=== PATIENT | female | born 1960 | race Caucasian/White ===

== ENCOUNTER 2017-07-28 07:30 | Inpatient (IN) | payer OTHER ==
[~2017-07-28] VITALS: Ht 162.6 cm; Wt 92.5 kg
--- NOTE | ~2017-07-28 | CR144 ---
[facility] A Service of [place] [facility] RADIOLOGY TEXT RESULTS PATIENT: KING ANDREWS LOCATION: [place] [address]- : 58 UNIT #: [id number] AGE: [address]: Felipe Self MD SEX: F ORDER DR: [id number] [facility] [address] [facility]. [place], [place] [address] [id number] MR#: [id number] Acc #: [id number] NAME: KING ANDREWS. : 1960 SEX: F STUDY DATE/TIME: 07/29/2017 07:27 UNIT: [facility] ROOM: [facility] STUDY DESCRIPTION: CR Hip 1 View Lt Attending Physician: Felipe Self M.D. Ordering Physician: Scott Ramirez M.D. MEDICAL IMAGING REPORT This report is preliminary unless electronic signature is present EXAM Left hip, 07/29/2017, 0727 hours. HISTORY Hip pain status post closed reduction left hip dislocation today. COMPARISON 08/04/2011 FINDINGS AP view demonstrates a left hip replacement with a screwed acetabular component and a noncemented femoral component in anatomic alignment. No fracture or dislocation is seen. IMPRESSION Single view left hip demonstrates postop change of left hip replacement with no fracture or dislocation.. Dictated by... Celia Villaseñor M.D. THIS IS AN ELECTRONICALLY VERIFIED REPORT Celia Villaseñor M.D. at 07/29/2017 5:52 PM PENNIE/corey TD: 07/29/2017 14:47 JOB #: [id number] MEDICAL IMAGING REPORT Page 1 of 1 COPY
--- NOTE | ~2017-07-28 | OR ---
Unit #: [id number] #: [id number] Patient: KING AMOR [id number] [place] [id number] [facility]. [place], [place] [address] [id number] I MR#: [id number] NAME: KING AMOR. ROOM: 471 Date of Procedure: 07/29/2017 Admission Date: 07/28/2017 Surgeon: Scott Ramirez M.D. : 1960 Attending Physician: Felipe Self M.D. OPERATIVE REPORT PREOPERATIVE DIAGNOSIS Dislocated left total hip arthroplasty. POSTOPERATIVE DIAGNOSIS Dislocated left total hip arthroplasty PROCEDURE PERFORMED Closed reduction, left hip and removal of staple. ASSISTANTS None. ANESTHESIA General anesthesia. COMPLICATIONS None. INDICATION FOR PROCEDURE Ms. Amor is a 56-year-old female, patient of my partner, Dr. Zuñiga, who is one month status post left total hip revision for instability, reports who was at home, sat on the couch and dislocated her left hip. She was seen at [facility] where x-rays were obtained. She was transferred to [facility] for definitive management. Original revision surgery was performed at [facility]. Discussion of possibly repeat dislocations were occurred. The plan was to do a closed reduction at this time. Risks and benefits were discussed in detail including fracture, neurovascular injury, DVT, PE, and . She understood and wished to proceed. DESCRIPTION OF PROCEDURE After the patient identified in preop holding area, the operative site was marked in front of the patient. She was brought to the operating room on her hospital bed. General anesthesia was induced. The left hip was cleaned alcohol and single staple was removed. Then, a closed reduction maneuver was performed with the hip flexed 90 degrees and knee flexed 90 degrees and the hip maximally internally rotated and anteriorly directed force was provided and the hip was externally rotated, and leg lengths were found to be equal. A portable digital x-ray was obtained intraoperatively showed the hip to be concentrically reduced without fracture. A knee immobilizer was placed. She was awakened from anesthesia and returned to recovery room in stable condition. No Unit #: [id number] #: [id number] Patient: KING AMOR intraoperative complications. Dictated by... Scott Ramierz M.D. DPR/modl TD: 07/29/2017 08:02 JOB #: [id number] OPERATIVE REPORT Page 1 of 1 X Scott Ramirez MD PROCEDURE OPERATIVE NOTE
--- NOTE | ~2017-07-28 | DS ---
Unit #: [id number] #: [id number] Patient: KING AMOR [id number] [address] [place], [place] [address] [id number] I MR#: [id number] NAME: KING AMOR ROOM: 47 Age: 56 Sex: F Admission Date: 07/28/2017 : 1960 Discharge Date: 07/29/2017 Attending Physician: Felipe Self M.D. DISCHARGE SUMMARY DISCHARGE DIAGNOSIS Dislocated left total hip arthroplasty. INDICATIONS FOR ADMISSION Mr. Amor is a 56-year-old female, patient of Dr. Zuñiga, who is 1 month status post left total hip revision at [facility]. She was sitting on the couch and her hip dislocated. She was transferred from [facility] to [facility] for definitive management. She underwent a closed reduction on 07/29/2017 which she tolerated well without complication. Physical therapy will be consulted to review posterior hip dislocation precautions. She will be discharged home later today. PLAN She will follow up with Dr. Zuñiga in the next week or 2. She is to continue with the knee immobilizer when out of bed. Any questions or concerns please call the office at [phone]. Dictated by... Scott Ramirez M.D. BUZZ/maddy TD: 07/29/2017 08:05 JOB #: [id number] DISCHARGE SUMMARY Page 1 of 1 X Scott Ramirez MD X DISCHARGE SUMMARY
--- NOTE | ~2017-07-28 | EKG ---
PATIENT: KING ANDREWS UNIT #: [id number] Ventricular Rate: 52 BPM Atrial Rate: 52 BPM P-R Interval: 162 ms QRS Duration: 98 ms Q-T Interval: 472 ms QTC Calculation(Bezet): 438 ms P [place]: 26 degrees Calculated R [place]: 2 degrees Calculated T [place]: 9 degrees Diagnosis Line: Sinus bradycardia Diagnosis Line: Nonspecific ST abnormality Diagnosis Line: Abnormal ECG Diagnosis Line: No previous ECGs available Diagnosis Line: Confirmed by RADHA ALLEN MD ([id number]) on Diagnosis Line: 07/30/2017 11:33:13 AM INTERPRETING MD: TIFFANY PENA
[2017-07-28] MEDS ORDERED: CARVEDILOL6.25 MG PO (21:32)
[2017-07-28] MEDS ORDERED: VALSARTAN-HCTZ1 EAC2 PO (21:33)
[2017-07-28] MEDS ORDERED: SYNTHROID (21:34)
[2017-07-28] MEDS ORDERED: CEPHALEXIN500 M1 PO (21:34)
[2017-07-28] MEDS ORDERED: EFFEXOR (21:35)
[2017-07-28] MEDS ORDERED: BUSPAR (21:35)
[2017-07-29 07:41] LABS: CALCIUM SERUM 9.5 mg/dL (8.4-10.2); GLOM FILT RATE Estimated 62.5 mL/min (>60); POTASSIUM 3.8 mmol/L (3.5-5.1)
[2017-07-29] MEDS ORDERED: HYDROCODON-ACE1 EAC9 PO (14:35)
== END 2017-07-29 15:25 | disposition home or self-care (01) | DRG 561 ==
LOC: CEDOF 20:43 → C4C 20:43
PROVIDERS: Orthopaedic Surgery; Specialist
PROC: 0SWBXJZ Revision of Synthetic Substitute in Left Hip Joint, External Approach (ICD-10-PCS; principal; 2017-07-29 07:30)
DX: T84.021A Dislocation of internal left hip prosthesis, initial encounter (principal); J84.112 Idiopathic pulmonary fibrosis; I10 Essential (primary) hypertension; E03.9 Hypothyroidism, unspecified; Y79.1 Therapeutic (nonsurgical) and rehabilitative orthopedic devices associated with adverse incidents; Y92.008 Other place in unspecified non-institutional (private) residence as the place of occurrence of the external cause
CPT/HCPCS: 73501; 80048; 93005; 97116; 97161; G8978-GP; G8979-GP; G8980-GP; G8990-GP; G8991-GP; G8992-GP; J2250; J3010